=== PATIENT | female | born 1970 | race Caucasian/White ===

== ENCOUNTER 2016-09-18 13:26 | Inpatient (IN) | payer MEDICAID ==
[2016-09-18] MEDS ORDERED: ONDANSETRON HCL INJ/PF 4 MG/2 ML SDV IV ONE ×2 (14:08→18:21)
[2016-09-18] MEDS ORDERED: NORMAL SALINE 1000 ML 1,000 ML IV ONE ×2 (14:08→17:25)
[2016-09-18] MEDS ORDERED: ACETAMINOPHEN 325 MG TABLET PO ONE ×2 (14:08→18:21)
--- NOTE | 2016-09-18 14:12 | ER Document Report ---
ED Medical Screen (RME) - General Chief Complaint: High Blood Sugar Stated Complaint: HEADACHE,WEAKNESS Time Seen by Provider: 09/18/16 14:04 Mode of Arrival: Ambulatory Information source: Patient Notes: Patient presents to the emergency department with complaints that she may have overdosed herself with her insulin. Patient reports she has been sick for the past 5 days. She vomited yesterday. She reports her sugars have been high over 300. She usually gives herself 83 of Lantus and a sliding scale of NovoLog daily. She reports she gave herself a total of 100 units of NovoLog yesterday and then woke up this morning at 430 and gave herself some more NovoLog and Lantus. Reports her sugars are coming down very fast. She reports an Accu-Chek of 96 is very low for her. Patient is complaining of a headache and nausea. TRAVEL OUTSIDE OF THE [place] IN LAST 30 DAYS: No - Related Data Allergies/Adverse Reactions: codeine [Codeine] Allergy (Unknown, Verified 03/20/15 09:13) quetiapine fumarate [From Seroquel] Allergy (Unknown, Verified 03/20/15 09:13) latex [Latex] Allergy (Verified 03/20/15 09:13) Home Medications: Current Home Medications Albuterol Sulfate [Ventolin Hfa] 2 puff IH Q4HP PRN 09/18/16 [History] Duloxetine HCl 30 mg PO DAILY 09/18/16 [History] Insulin Aspart [Novolog Flexpen] 0 units SQ MEALS 09/18/16 [History] Insulin Glargine,Hum.rec.anlog [Lantus Solostar] 83 units SQ QHS 09/18/16 [ History] Metoprolol Tartrate [Lopressor 25 mg Tablet] 25 mg PO DAILY 09/18/16 [History] Trazodone HCl [Desyrel 50 mg Tablet] 50 mg PO QHS 09/18/16 [History] Past Medical History - Past Medical History Cardiac Medical History: Denies: Hx Coronary Artery Disease, Hx Heart Attack, Hx Hypertension Pulmonary Medical History: Reports: Hx Bronchitis, Hx Pneumonia - 2009 "Gets every year" Neurological Medical History: Reports: Hx Migraine, Hx Seizures - Related to Seroquel allergy. Denies: Hx Cerebrovascular Accident Endocrine Medical History: Reports: Hx Diabetes Mellitus Type 1, Hx Diabetes Mellitus Type 2 - states pcm increased Lantus today b/c blood surgar high yesterday Renal/ Medical History: Denies: Hx Peritoneal Dialysis GI Medical History: Reports: Hx Crohn's Disease, Hx Diverticulitis Musculoskeltal Medical History: Denies Hx Arthritis, Reports Hx Musculoskeletal Trauma Psychiatric Medical History: Reports: Hx Obsessive Compulsive Disorder, Hx Post Traumatic Stress Disorder Denies: Hx Anxiety, Hx Attention Deficit Hyperactivity Disorder, Hx Bipolar Disorder, Hx Borderline Personality Disorder, Hx Dementia Traumatic Medical History: Reports: Hx Fractures Past Surgical History: Reports: Hx Abdominal Surgery - x22, Tummy Tuck, Hx Appendectomy, Hx Breast Surgery - biopsy, Hx Section - x4, Hx Cholecystectomy, Hx Hysterectomy, Hx Oral Surgery, Hx Tonsillectomy, Hx Umbilical Hernia. Denies: Hx Pacemaker - Immunizations Immunizations up to date: Yes Hx Diphtheria, Pertussis, Tetanus Vaccination: Yes Physical Exam - Vital signs Vitals: Temp Pulse Resp BP Pulse Ox 98.2 F 109 H 20 140/101 H 96 09/18/16 13:33 09/18/16 13:33 09/18/16 13:33 09/18/16 13:33 09/18/16 13:33 Course - Vital Signs Vital signs: Temp Pulse Resp BP Pulse Ox 97.9 F 70 16 120/74 99 09/18/16 13:40 09/18/16 13:40 09/18/16 19:01 09/18/16 19:00 09/18/16 19:01 - Laboratory Result Diagrams: 09/18/16 14:20 09/18/16 16:37 Laboratory results interpreted by me: 09/18/16 09/18/16 09/18/16 14:20 16:10 16:37 RBC 5.57 H Hgb 15.6 H Hct 47.2 H Glucose 72 L POC Glucose Urine Glucose (UA) >=500 H Urine Ketones TRACE H Ur Leukocyte Esterase SMALL H 09/18/16 09/18/16 18:55 19:38 RBC Hgb Hct Glucose POC Glucose 67 L 188 H Urine Glucose (UA) Urine Ketones Ur Leukocyte Esterase Doctor's Discharge - Discharge Clinical Impression: Hypoglycemia Condition: Stable Disposition: ADMITTED OBSERVATION
[2016-09-18 14:33] LABS: ABSOLUTE EOSINOPHILS # (AUTO) 0.1 10^3/uL (0.0-0.6); ABSOLUTE MONOCYTES (AUTO) 0.4 10^3/uL (0.1-1.4); ABSOLUTE NEUT (AUTO) 3.9 10^3/uL (1.7-8.2); BASOPHILS % (AUTO) 0.6 % (0-2); EOSINOPHILS % (AUTO) 1.1 % (0-6); HEMATOCRIT 47.2 % (36.0-47.0); HEMOGLOBIN 15.6 g/dL (12.0-15.5); HGB HCT DIFFERENCE -0.4; LYMPHOCYTES % (AUTO) 30.7 % (13-45); MEAN CORPUSCULAR HEMOGLOBIN 27.9 pg (27.0-33.4); MEAN CORPUSCULAR VOLUME 85 fl (80-97); MONOCYTES % (AUTO) 6.4 % (3-13); RED BLOOD COUNT 5.57 10^6/uL (3.72-5.28); RED CELL DISTRIBUTION WIDTH 13.1 % (11.5-14.0); SEGMENTED NEUTROPHILS % (AUTO) 61.2 % (42-78); WHITE BLOOD COUNT 6.4 10^3/uL (4.0-10.5)
[2016-09-18 16:43] LABS: APPEARANCE,URINE SLIGHTLY-CLOUDY; BILIRUBIN,URINE NEGATIVE (NEGATIVE); GLUCOSE, URINE >=500 mg/dL (NEGATIVE); KETONES,URINE TRACE mg/dL (NEGATIVE); LEUKOCYTE ESTERASE,URINE SMALL (NEGATIVE); NITRITE,URINE NEGATIVE (NEGATIVE); PROTEIN,URINE NEGATIVE (NEGATIVE); URINE SPECIFIC GRAVITY 1.035; UROBILINOGEN,URINE NEGATIVE mg/dL (<2.0)
[2016-09-18 17:09] LABS: ALANINE AMINOTRANSFERASE 35 U/L (9-52); ALBUMIN 4.1 g/dL (3.5-5.0); ALKALINE PHOSPHATASE 71 U/L (38-126); ANION GAP 9 (5-19); ASPARTATE AMINO TRANSFERASE 22 U/L (14-36); BILIRUBIN,DIRECT 0.3 mg/dL (0.0-0.4); BILIRUBIN,TOTAL 0.4 mg/dL (0.2-1.3); BLOOD UREA NITROGEN 18 mg/dL (7-20); CALCIUM 9.1 mg/dL (8.4-10.2); CARBON DIOXIDE 25 mmol/L (22-30); CHLORIDE 107 mmol/L (98-107); CREATININE RESULT 0.69 mg/dL (0.52-1.25); GLUCOSE 72 mg/dL (75-110); POTASSIUM 3.9 mmol/L (3.6-5.0); SODIUM 140.9 mmol/L (137-145); TOTAL PROTEIN 7.1 g/dL (6.3-8.2)
[2016-09-18] MEDS ORDERED: DEXTROSE 50%-WATER 25 GM/50 ML DISP.SYRIN IV ONE ×2 (17:43→18:56)
--- NOTE | 2016-09-18 17:44 | ER Document Report ---
ED General - General Chief Complaint: High Blood Sugar Stated Complaint: HEADACHE,WEAKNESS Time Seen by Provider: 09/18/16 14:04 Mode of Arrival: Ambulatory Information source: Patient Notes: 46 yr old female diabetic on lantus and insulin presents with complaints of taking too much of her medication due to her high blood sugar. pt denies any fevers or chills, nausea or vomiting . Pt notes she took 20 of lantus at 8am and 25 of insulin, pt notes approximately 200 units of insulin total in the past 24 hours TRAVEL OUTSIDE OF THE [place] IN LAST 30 DAYS: No - HPI Onset: Yesterday Onset/Duration: Persistent Quality of pain: No pain Severity: Mild Pain Level: Denies Associated symptoms: None Exacerbated by: Denies Relieved by: Denies Similar symptoms previously: No Recently seen / treated by doctor: No - Related Data Allergies/Adverse Reactions: codeine [Codeine] Allergy (Unknown, Verified 03/20/15 09:13) quetiapine fumarate [From Seroquel] Allergy (Unknown, Verified 03/20/15 09:13) latex [Latex] Allergy (Verified 03/20/15 09:13) Home Medications: Current Home Medications Albuterol Sulfate [Ventolin Hfa] 2 puff IH Q4HP PRN 09/18/16 [History] Duloxetine HCl 30 mg PO DAILY 09/18/16 [History] Insulin Aspart [Novolog Flexpen] 0 units SQ MEALS 09/18/16 [History] Insulin Glargine,Hum.rec.anlog [Lantus Solostar] 83 units SQ QHS 09/18/16 [ History] Metoprolol Tartrate [Lopressor 25 mg Tablet] 25 mg PO DAILY 09/18/16 [History] Trazodone HCl [Desyrel 50 mg Tablet] 50 mg PO QHS 09/18/16 [History] Past Medical History - General Information source: Patient - Social History Smoking Status: Never Smoker Cigarette use (# per day): No Chew tobacco use (# tins/day): No Smoking Education Provided: No Family History: Arthritis, DM. denies: CAD, CVA, Hyperlipidemia, Hypertension, Malignancy, Thyroid Disfunction Patient has suicidal ideation: No Patient has homicidal ideation: No - Past Medical History Cardiac Medical History: Denies: Hx Coronary Artery Disease, Hx Heart Attack, Hx Hypertension Pulmonary Medical History: Reports: Hx Bronchitis, Hx Pneumonia - 2009 "Gets every year" Neurological Medical History: Reports: Hx Migraine, Hx Seizures - Related to Seroquel allergy. Denies: Hx Cerebrovascular Accident Endocrine Medical History: Reports: Hx Diabetes Mellitus Type 1, Hx Diabetes Mellitus Type 2 - states pcm increased Lantus today b/c blood surgar high yesterday Renal/ Medical History: Denies: Hx Peritoneal Dialysis GI Medical History: Reports: Hx Crohn's Disease, Hx Diverticulitis Musculoskeltal Medical History: Denies Hx Arthritis, Reports Hx Musculoskeletal Trauma Psychiatric Medical History: Reports: Hx Obsessive Compulsive Disorder, Hx Post Traumatic Stress Disorder Denies: Hx Anxiety, Hx Attention Deficit Hyperactivity Disorder, Hx Bipolar Disorder, Hx Borderline Personality Disorder, Hx Dementia Traumatic Medical History: Reports: Hx Fractures Past Surgical History: Reports: Hx Abdominal Surgery - x22, Tummy Tuck, Hx Appendectomy, Hx Breast Surgery - biopsy, Hx Section - x4, Hx Cholecystectomy, Hx Hysterectomy, Hx Oral Surgery, Hx Tonsillectomy, Hx Umbilical Hernia. Denies: Hx Pacemaker - Immunizations Immunizations up to date: Yes Hx Diphtheria, Pertussis, Tetanus Vaccination: Yes Hx Pneumococcal Vaccination: 04/22/07 Review of Systems - Review of Systems Notes: REVIEW OF SYSTEMS: CONSTITUTIONAL : Denies fever, chills, or sweats. Denies recent illness. EENT: Denies eye, ear, throat, or mouth pain or symptoms. Denies nasal or sinus congestion or discharge. Denies throat, tongue, or mouth swelling or difficulty swallowing. CARDIOVASCULAR: Denies chest pain. Denies palpitations or racing or irregular heart beat. Denies ankle edema. RESPIRATORY: Denies cough, cold, or chest congestion. Denies shortness of breath, difficulty breathing, or wheezing. GASTROINTESTINAL: Denies abdominal pain or distention. Denies nausea, vomiting , or diarrhea. Denies blood in vomitus, stools, or per rectum. Denies black, tarry stools. Denies constipation. GENITOURINARY: Denies difficulty urinating, painful urination, burning, frequency, blood in urine, or discharge. FEMALE GENITOURINARY: Denies vaginal bleeding, heavy or abnormal periods, irregular periods. Denies vaginal discharge or odor. MUSCULOSKELETAL: Denies back or neck pain or stiffness. Denies joint pain or swelling. SKIN: Denies rash, lesions or sores. HEMATOLOGIC : Denies easy bruising or bleeding. LYMPHATIC: Denies swollen, enlarged glands. NEUROLOGICAL: Denies confusion or altered mental status. Denies passing out or loss of consciousness. Denies dizziness or lightheadedness. Denies headache. Denies weakness or paralysis or loss of use of either side. Denies problems with gait or speech. Denies sensory loss, numbness, or tingling. Denies seizures. PSYCHIATRIC: Denies anxiety or stress. Denies depression, suicidal ideation, or homicidal ideation. ALL OTHER SYSTEMS REVIEWED AND NEGATIVE. Dictation was performed using [employer] voice recognition software PHYSICAL EXAMINATION: GENERAL: Well-appearing, well-nourished and in no acute distress. HEAD: Atraumatic, normocephalic. EYES: Pupils equal round and reactive to light, extraocular movements intact, conjunctiva are normal. ENT: Nares patent, oropharynx clear without exudates. Moist mucous membranes. NECK: Normal range of motion, supple without lymphadenopathy LUNGS: Breath sounds clear to auscultation bilaterally and equal. No wheezes rales or rhonchi. HEART: Regular rate and rhythm without murmurs ABDOMEN: Soft, nontender, nondistended abdomen. No guarding, no rebound. No masses appreciated. Female : deferred Musculoskeletal: Normal range of motion, no pitting or edema. No cyanosis. NEUROLOGICAL: Cranial nerves grossly intact. Normal speech, normal gait. Normal sensory, motor exams PSYCH: Normal mood, normal affect. SKIN: Warm, Dry, normal turgor, no rashes or lesions noted. Physical Exam - Vital signs Vitals: Temp Pulse Resp BP Pulse Ox 98.2 F 109 H 20 140/101 H 96 09/18/16 13:33 09/18/16 13:33 09/18/16 13:33 09/18/16 13:33 09/18/16 13:33 Course - Re-evaluation Re-evalutation: 09/18/16 17:44 Patient last gave herself 20 of Lantus and 25 of insulin at 8 AM, half life of Lantus is 12 hours. Recheck of her blood sugar was 70s, 09/18/16 18:01 09/18/16 18:01 Since blood sugar on recheck 97, I will continue IV fluids and watch 09/18/16 18:56 dextrose given glucose was 67 09/18/16 20:46 pts blood sugar went from 180 to 99 09/18/16 20:48 pt will be admitted to the hospital for evaluation since her blood sugar is tactile. - Vital Signs Vital signs: Temp Pulse Resp BP Pulse Ox 97.9 F 70 16 120/74 99 09/18/16 13:40 09/18/16 13:40 09/18/16 19:01 09/18/16 19:00 09/18/16 19:01 - Laboratory Result Diagrams: 09/18/16 14:20 09/18/16 16:37 Laboratory results interpreted by me: 09/18/16 09/18/16 09/18/16 14:20 16:10 16:37 RBC 5.57 H Hgb 15.6 H Hct 47.2 H Glucose 72 L POC Glucose Urine Glucose (UA) >=500 H Urine Ketones TRACE H Ur Leukocyte Esterase SMALL H 09/18/16 09/18/16 18:55 19:38 RBC Hgb Hct Glucose POC Glucose 67 L 188 H Urine Glucose (UA) Urine Ketones Ur Leukocyte Esterase Discharge - Discharge Clinical Impression: Hypoglycemia Condition: Stable Disposition: ADMITTED OBSERVATION Admitting Provider: Hospitalist Unit Admitted: Telemetry
[2016-09-18] MEDS: POTASSI CL 20 MEQ/D5NS 1L 1,000 ML IV PRN (21:33)
[2016-09-18] MEDS ORDERED: DEXTROSE 50%-WATER 25 GM/50 ML DISP.SYRIN IV PRN ×2 (22:11)
[2016-09-18] MEDS ORDERED: DEXTROSE 40% GEL 15 GM TUBE PO PRN ×2 (22:11)
[2016-09-18] MEDS ORDERED: GLUCAGON,HUMAN RECOMB 1 MG INJ IM PRN (22:11)
[2016-09-18] MEDS ORDERED: IPRATROPIUM/ALBUTEROL 0.5-2.5 MG/3 ML AMPUL NEB PRN (22:14)
[2016-09-18] MEDS ORDERED: MAG HYDROX/AL HYDROX/SIMETH SUSP 30 ML UDCUP PO PRN (22:14)
[2016-09-18] MEDS ORDERED: ACETAMINOPHEN 325 MG TABLET PO PRN (22:14)
[2016-09-18] MEDS ORDERED: MAGNESIUM HYDROXIDE SUSP 30 ML UDCUP PO PRN (22:14)
[2016-09-18 22:23] LABS: ADD ON TESTING BLD IN LAB ACKNOWLEDGE
--- NOTE | 2016-09-18 22:44 | PDOC H&P ---
History of Present Illness Admission Date/PCP: 09/18/16 20:58 ISRAEL THRASHER MD Endocrin [place], [place] Patient complains of: low blood sugar History of Present Illness: PHILLIP DOBBS is a 46 year old female with underlying type 1 diabetes mellitus, who presents to the emergency room for evaluation of above complaint. Patient has been discussed with emergency room physician who evaluated the patient. Over the past 2 weeks, except for the last 24 hours, her blood sugars have never fallen below 350. Over the last several days, she basically has been self -medicating herself with additional Lantus and NovoLog insulin. States she has had approximately 200 units of NovoLog and just over 100 units of Lantus in the last 24 hours. Starting approximately 24 hours ago, she noted her blood sugars were consistently in the low range. She was urged to come to the emergency room but declined to do so. Apparently has not contacted either her primary care physician or armature varnisher over this time span either. Denies nausea vomiting, fever or chills, diarrhea or dysuria. No chest or abdominal pain. Other than her own changes in her medication regimen, there has been no recent physician change in her insulin regimen. According to the emergency room physician, she reportedly had a brief syncopal episode in the emergency room. Also complaining of a headache. Little relief with Tylenol given in the emergency room.. Has migraine headaches. States this feels like her typical migraine headache. Takes Botox injections every 2 months. Last injection 10 days ago. Laboratory results are listed in [facility] and are reviewed. EKG noted and compared to tracing from 06/25/14. Social history/personal habits: . One son. Unemployed. No use of tobacco or illicit drugs. Rare glass of wine. Allergies/adverse reactions are listed in [facility] and are reviewed. Home medications initially autopopulated into [employer] may not accurately reflect patient's true medications, dosages, and/or frequencies. technical aid has reconciled her medications, but was not aware that she takes Botox injections. REVIEW OF SYSTEMS: Constitutional: No fever or chills. Eyes: Wears glasses. ENT: No swallowing problems or complaints. Denies hearing loss. Pulmonary: No current complaints. Cardiovascular: No current complaints, including chest pain. Gastrointestinal: No current complaints, including nausea or vomiting. Skin: No current complaints, including rashes. Hematologic: Easy bruising. Neurologic: See history and present illness. Musculoskeletal:Joint pain from arthritis. Psychiatric: Anxiety. Denies depression. Endocrine: No current complaints, including polyuria. Genitourinary: No current complaints, including dysuria. PHYSICAL EXAMINATION: 5 feet 4 inches tall. 78.8 kg. BMI 29.8 kg/m. Blood pressure 108/71. Pulse 67 and regular. Respirations are 16 and unlabored. 100% saturation on room air. Temperature 97.9. Slightly overweight otherwise well-nourished well-developed female appearing approximately her stated age. Pleasant awake alert and cooperative. Appears to feel a bit under the weather, so to speak. Mildly anxious, without agitation. Son is present at her side; patient approves. Female emergency room nurse Allen is present. Skin is warm and dry. No grossly obvious evidence of rash in areas of skin examined. No subcutaneous nodules palpated. ENT: Hearing grossly normal to normal conversation. Tongue midline on protrusion pink and slightly moist. Eyes: No scleral icterus. Pupils equal and reactive to light at 4 mm. [place] conjunctivae. Neck is supple and nontender to gentle active range of motion and palpation. Midline trachea. No palpable thyroid nodule mass enlargement or tenderness. Lymphatic: No palpable cervical or clavicular nodes. Neck and lymphatic exams limited by patient body habitus. Psychiatric: Reasonable insight into acute and chronic medical issues. Oriented to time location and why here. Lungs: Auscultation reveals clear and equal breath sounds bilaterally. No use of accessory respiratory muscles. Cardiovascular: Heart regular rate and rhythm, without gallop murmur or rub. No carotid or abdominal aortic bruits. No ankle or pedal edema. palpable dorsalis pedis pulses. Abdomen:soft slightly distended nontender with positive bowel sounds. Unable to adequately evaluate abdomen for masses or organomegaly due to distention and body habitus. Extremities: Feet are warm and dry. No calf tenderness to compression. No grossly obvious visual evidence of calf swelling. Gentle manipulation of lower extremities fails to reveal any obvious evidence of injury or instability to knees hips or ankles. Neurologic: Moves upper extremities grossly normally. Patellar reflexes absent. Absent Babinski. Light touch is intact at feet. Dorsiflexion and plantarflexion of feet 5 / 5 and symmetric. Past Medical History Cardiac Medical History: Reports: Hypertension, Pulmonary Embolism - 2000, after abdominal surgery. Coumadin for 9 months. Denies: Congestive Heart Failure, Coronary Artery Disease, DVT, Myocardial Infarction, Hyperlipidema Pulmonary Medical History: Reports: Asthma, Bronchitis, Pneumonia - 2010 "Gets every year" Denies: Chronic Obstructive Pulmonary Disease (COPD), Sleep Apnea EENT Medical History: Reports: Eyes - Glasses Denies: Ears, Throat Neurological Medical History: Reports: Migraine, Seizures - Related to Seroquel allergy; never on antiepileptic. Denies: Hemorrhagic CVA, Ischemic CVA Endocrine Medical History: Reports: Diabetes Mellitus Type 1 Denies: Hyperthyroidism, Hypothyroidism Renal/ Medical History: Reports: None GI Medical History: Reports: Crohn's Disease - "In remission", Diverticulitis Denies: Cirrhosis, Hepatitis, Peptic Ulcer Disease Musculoskeltal Medical History: Reports: Arthritis Skin Medical History: Reports: None Psychiatric Medical History: Reports: General Anxiety Disorder, Post Traumatic Stress Disorder, Other - Obsessive-compulsive disorder. Denies: Alcohol Dependency, Depression, Substance Abuse, Tobacco Dependency Hematology: Denies: Anemia Infectious Medical History: Denies: Clostridium Difficile, Hepatitis B, Hepatitis C, Methicillin- Resistant Staph Aureus Past Surgical History Past Surgical History: Reports: Appendectomy, Section - x4, Cholecystectomy, Herniorrhaphy, Hysterectomy, Tonsillectomy Denies: Coronary Artery Bypass Graft, Coronary Stent, Pacemaker Social History Information Source: Patient, Emergency Med Personnel, [facility] Records Smoking Status: Never Smoker Frequency of Alcohol Use: Rare Drugs: None - Advance Directive Resuscitation Status: Full Code Surrogate healthcare decision maker:: Son Family History Family History: Arthritis, DM. denies: CAD, CVA, Hyperlipidemia, Hypertension, Malignancy, Thyroid Disfunction Parental Family History Reviewed: Yes - Mother of diabetic complications. Uncertain father's cause of Children Family History Reviewed: Yes - Son is healthy. Sibling(s) Family History Reviewed.: Yes - Sister with ulcerative colitis. Medication/Allergy Home Medications: Albuterol Sulfate [Ventolin Hfa] 2 puff IH Q4HP PRN 09/18/16 Duloxetine HCl 30 mg PO DAILY 09/18/16 Insulin Aspart [Novolog Flexpen] 0 units SQ MEALS 09/18/16 Insulin Glargine,Hum.rec.anlog [Lantus Solostar] 83 units SQ QHS 09/18/16 Metoprolol Tartrate [Lopressor 25 mg Tablet] 25 mg PO DAILY 09/18/16 Onabotulinumtoxina [Botox] unit IJ 09/18/16 Trazodone HCl [Desyrel 50 mg Tablet] 50 mg PO QHS 09/18/16 Sumatriptan [Imitrex 5 Mg Nasal [place]man Ud] mg NASL PRN 09/19/16 Allergies/Adverse Reactions: codeine [Codeine] Allergy (Unknown, Verified 09/19/16 04:41) quetiapine fumarate [From Seroquel] Allergy (Unknown, Verified 09/18/16 22:10) seizure latex [Latex] Allergy (Verified 03/20/15 09:13) Physical Exam Vital Signs: Temp Pulse Resp BP Pulse Ox 97.9 F 70 16 120/74 99 09/18/16 13:40 09/18/16 13:40 09/18/16 19:01 09/18/16 19:00 09/18/16 19:01 Assessment & Plan - Diagnosis (1) Abnormal urinalysis Is this a current diagnosis for this admission?: YesPlan: Urine culture. With no urinary tract symptoms, we will forego antibiotics at this point in time. (2) Headache Qualifiers: Headache type: unspecified Headache chronicity pattern: chronic headache Is this a current diagnosis for this admission?: YesPlan: As needed pain medication. (3) Hypoglycemia due to type 1 diabetes mellitus Is this a current diagnosis for this admission?: YesPlan: Cardiac diet. Hourly Accu-Cheks. Hypoglycemic protocol. Dextrose containing IV fluid. We will obviously hold home insulin. I have strongly encouraged patient not to get out of bed without notifying staff , to avoid a fall with injury. Knee high SCDs for DVT prophylaxis, along with subcutaneous Lovenox. Impression and plans were discussed with patient and son, both of whom concur. Time spent in evaluation and management of patient: 66 minutes. (4) Noncompliance with medication regimen Is this a current diagnosis for this admission?: Yes (5) Syncope Qualifiers: Syncope type: unspecified Qualified Code(s): R55 - Syncope and collapse Is this a current diagnosis for this admission?: YesPlan: Orthostatic vital signs stat and every 4 hours while awake. Fall precautions. Out of bed with assistance only. (6) Anxiety Is this a current diagnosis for this admission?: YesPlan: Resume home medications as appropriate once these have been reviewed. (7) HTN (hypertension) Qualifiers: Hypertension type: essential hypertension Qualified Code(s): I10 - Essential (primary) hypertension Is this a current diagnosis for this admission?: YesPlan: Resume home medications as appropriate once these have been reviewed. (8) OCD (obsessive compulsive disorder) Qualifiers: Obsessive-compulsive disorder type: unspecified Qualified Code(s): F42.9 - Obsessive-compulsive disorder, unspecified Is this a current diagnosis for this admission?: YesPlan: Resume home medications as appropriate once these have been reviewed. (9) PTSD (post-traumatic stress disorder) Is this a current diagnosis for this admission?: YesPlan: Resume home medications as appropriate once these have been reviewed.
[2016-09-18 22:46] LABS: MAGNESIUM 1.8 mg/dL (1.6-2.3)
[2016-09-19] MEDS: OXYCODONE HCL IR 5 MG TABLET PO PRN (00:09)
--- NOTE | 2016-09-19 00:23 | EKG REPORT ---
SEVERITY:- BORDERLINE ECG - SINUS RHYTHM BORDERLINE R WAVE PROGRESSION, ANTERIOR LEADS BORDERLINE T ABNORMALITIES, ANTERIOR LEADS : Confirmed by: Rinku Yuen 19-Sep-2016 00:23:35
[2016-09-19] MEDS: PROMETHAZINE HCL 25 MG TABLET PO PRN ×3 (03:02→19:13)
[2016-09-19] MEDS ORDERED: MORPHINE SULFATE 10 MG/ML INJ IV ONE (04:41)
[2016-09-19 06:56] LABS: ANION GAP 7 (5-19); BLOOD UREA NITROGEN 12 mg/dL (7-20); CALCIUM 8.8 mg/dL (8.4-10.2); CARBON DIOXIDE 25 mmol/L (22-30); CHLORIDE 109 mmol/L (98-107); CREATININE RESULT 0.71 mg/dL (0.52-1.25); GLUCOSE 91 mg/dL (75-110); POTASSIUM 4.4 mmol/L (3.6-5.0); SODIUM 141.4 mmol/L (137-145)
[2016-09-19] MEDS: ENOXAPARIN SODIUM INJ 40 MG/0.4 ML DISP.SYRIN SUBCUT SCH (07:51)
[2016-09-19] MEDS: POTASSI CL 20 MEQ/D5NS 1L 1,000 ML IV PRN ×2 (07:52→16:28)
[2016-09-19] MEDS: SUMATRIPTAN SUCCINATE 100 MG TABLET PO PRN ×2 (10:26→23:40)
[2016-09-19] MEDS: DOCUSATE SODIUM 100 MG CAPSULE PO SCH ×2 (10:27→17:04)
[2016-09-19] MEDS ORDERED: INSULIN LISPRO 100 UNIT/ML 3 ML VIAL SUBCUT PRN (10:39)
--- NOTE | 2016-09-19 10:56 | PDOC PROGRESS REPORT ---
Subjective Progress Note for:: 09/19/16 Subjective:: Patient states that her blood glucose has been very poorly controlled over the past couple weeks. She states that she has had an extraordinary amount of psychosocial stressors to include loss of a job, having to move in with her children, starting training for a new program. She believes this may be related to her uncontrolled blood glucose. She denies any infectious symptoms such as fever, chills, dysuria, abdominal pain. She has been having migraine headaches. She has chronic migraines that are treated with Imitrex and hydrocodone. Physical Exam Vital Signs: Temp Pulse Resp BP Pulse Ox 97.9 F 66 15 92/51 L 97 09/19/16 07:21 09/19/16 07:21 09/19/16 07:21 09/19/16 07:21 09/19/16 07:21 Intake & Output 09/18/16 09/19/16 09/20/16 06:59 06:59 06:59 Intake Total 1000 Balance 1000 Weight 81.8 kg GENERAL: No acute distress HEENT: Conjunctiva clear, nonicteric, moist mucous membranes, no JVD, midline trachea RESPIRATORY: Clear to auscultation bilaterally, no wheezes, no rhonchi CARDIAC: Regular rate and rhythm, no murmurs/gallops/rubs ABDOMEN: Soft, nondistended, nontender, positive bowel sounds, no rebound, no guarding EXTREMETIES: No edema, cyanosis, clubbing NEUROLOGIC: Alert, oriented to person/place/time, CN's grossly intact, no focal deficits SKIN: No rash, wounds PSYCH: Normal mood, normal affect Results Laboratory Results: 09/19/16 06:01 09/19/16 06:01 Sodium 141.4 Potassium 4.4 Chloride 109 H Carbon Dioxide 25 Anion Gap 7 BUN 12 Creatinine 0.71 Est GFR ( Amer) > 60 Est GFR (Non-Af Amer) > 60 Glucose 91 Calcium 8.8 Assessment & Plan - Diagnosis (1) Hypoglycemia due to type 1 diabetes mellitus Is this a current diagnosis for this admission?: YesPlan: Continue D5 normal saline for now. Continue Accu-Cheks before meals/at bedtime. Continue to hold scheduled Lantus. (2) Syncope Qualifiers: Syncope type: unspecified Qualified Code(s): R55 - Syncope and collapse Is this a current diagnosis for this admission?: YesPlan: Secondary to hypoglycemia. (3) Migraine Is this a current diagnosis for this admission?: YesPlan: Imitrex. As needed IV Dilaudid. - Time Time Spent with patient: 35 or more minutes
[2016-09-19] MEDS: HYDROMORPHONE HCL INJ/PF 2 MG/ML AMPULE IV PRN ×3 (13:16→20:57)
[2016-09-19] MEDS: METOPROLOL TARTRATE 25 MG TABLET PO SCH (17:01)
[2016-09-20] MEDS: PROMETHAZINE HCL 25 MG TABLET PO PRN ×6 (01:23→23:54)
[2016-09-20] MEDS: HYDROMORPHONE HCL INJ/PF 2 MG/ML AMPULE IV PRN ×5 (01:23→19:43)
[2016-09-20] MEDS: POTASSI CL 20 MEQ/D5NS 1L 1,000 ML IV PRN ×2 (01:24→09:36)
[2016-09-20] MEDS ORDERED: MAGNESIUM HYDROXIDE SUSP 30 ML UDCUP PO PRN (09:57)
[2016-09-20] MEDS ORDERED: MAG HYDROX/AL HYDROX/SIMETH SUSP 30 ML UDCUP PO PRN (09:57)
[2016-09-20] MEDS: ENOXAPARIN SODIUM INJ 40 MG/0.4 ML DISP.SYRIN SUBCUT SCH (10:15)
[2016-09-20] MEDS: METOPROLOL TARTRATE 25 MG TABLET PO SCH (10:16)
[2016-09-20] MEDS: DOCUSATE SODIUM 100 MG CAPSULE PO SCH ×2 (10:16→17:27)
[2016-09-20] MEDS ORDERED: VANCOMYCIN HCL 0 MG in DEXTROSE 5%-WATER 250 ML IV NR (11:45)
--- NOTE | 2016-09-20 12:24 | RADIOLOGY REPORT (SQ) ---
EXAM DESCRIPTION: CHEST SINGLE VIEW COMPLETED DATE/TIME: 09/20/2016 12:01 pm REASON FOR STUDY: fever COMPARISON: CT angio chest 09/29/2012 EXAM PARAMETERS: NUMBER OF VIEWS: One view. TECHNIQUE: Single frontal radiographic view of the chest acquired. RADIATION DOSE: NA LIMITATIONS: None. FINDINGS: LUNGS AND PLEURA: Minimal left retrocardiac atelectasis. Lungs are otherwise well inflate d and clear. No pleural effusion. No pneumothorax. MEDIASTINUM AND HILAR STRUCTURES: No masses. Contour normal. HEART AND VASCULAR STRUCTURES: Heart normal in size. Normal vasculature. BONES: No acute findings. HARDWARE: None in the chest. OTHER: No other significant finding. IMPRESSION: Minimal left basilar atelectasis TECHNICAL DOCUMENTATION: JOB ID: [id number]
[2016-09-20 12:58] LABS: PARTIAL THROMBOPLASTIN TIME 33.8 SEC (23.5-35.8)
--- NOTE | 2016-09-20 13:38 | RADIOLOGY REPORT (SQ) ---
EXAM DESCRIPTION: CT HEAD WITHOUT COMPLETED DATE/TIME: 09/20/2016 1:20 pm REASON FOR STUDY: headache COMPARISON: CT brain 06/15/2011 TECHNIQUE: Axial images acquired through the brain without intravenous contrast. Images reviewed wi th bone, brain and subdural windows. Images stored on PACS. All CT scanners at this facility use dose modulation, iterative reconstruction, and/or weight based d osing when appropriate to reduce radiation dose to as low as reasonably achievable (ALARA). [facility]: Dose Right [facility]: CareDose [facility]: Dose Right [facility]: Teradose 4D [facility]: JeNaCell RADIATION DOSE: 48.95 mGy. LIMITATIONS: None. FINDINGS: VENTRICLES: Normal size and contour. CEREBRUM: No masses. No hemorrhage. No midline shift. Normal lan/white matter differentiation. N o evidence for acute infarction. CEREBELLUM: No masses. No hemorrhage. No alteration of density. No evidence for acute infarction. EXTRAAXIAL SPACES: No fluid collections. No masses. ORBITS AND GLOBE: No intra- or extraconal masses. Normal contour of globe without masses. CALVARIUM: No fracture. PARANASAL SINUSES: No fluid or mucosal thickening. SOFT TISSUES: No mass or hematoma. OTHER: No other significant finding. IMPRESSION: NORMAL BRAIN CT WITHOUT CONTRAST. TECHNICAL DOCUMENTATION: JOB ID: [id number] Quality ID # [id number]: Final reports with documentation of one or more dose reduction techniques (e.g., Au tomated exposure control, adjustment of the mA and/or kV according to patient size, use of iterative reconstruction technique) 2010 [employer]- All Rights Reserved
[2016-09-20] MEDS: CEFTRIAXONE 2 GM/D5W RTU 2 GM/50 ML RTUPB IV SCH (13:53)
[2016-09-20] MEDS: METOCLOPRAMIDE HCL INJ/PF 10 MG/2 ML SDV IV SCH ×2 (13:53→17:27)
--- NOTE | 2016-09-20 14:08 | PDOC PROGRESS REPORT ---
Subjective Progress Note for:: 09/20/16 Subjective:: Patient has been having headache, nausea, vomiting, neck stiffness. She had documented fever overnight. She states that she has a history of gastroparesis and feels as though this may be acting out. Physical Exam Vital Signs: Temp Pulse Resp BP Pulse Ox 99.0 F 68 16 111/69 96 09/20/16 07:35 09/20/16 13:41 09/20/16 13:41 09/20/16 07:35 09/20/16 13:41 Intake & Output 09/19/16 09/20/16 09/21/16 06:59 06:59 06:59 Intake Total 1000 4156 Balance 1000 4156 Weight 81.8 kg GENERAL: No acute distress HEENT: Conjunctiva clear, nonicteric, moist mucous membranes, no JVD, midline trachea RESPIRATORY: Clear to auscultation bilaterally, no wheezes, no rhonchi CARDIAC: Regular rate and rhythm, no murmurs/gallops/rubs ABDOMEN: Soft, nondistended, nontender, positive bowel sounds, no rebound, no guarding EXTREMETIES: No edema, cyanosis, clubbing NEUROLOGIC: Alert, oriented to person/place/time, CN's grossly intact, no focal deficits, no nuchal rigidity SKIN: No rash, wounds PSYCH: Normal mood, normal affect Results Laboratory Results: 09/19/16 06:01 Impressions: Head CT 09/20/16 00:00 IMPRESSION: NORMAL BRAIN CT WITHOUT CONTRAST. Chest X-Ray 09/20/16 11:39 IMPRESSION: Minimal left basilar atelectasis Assessment & Plan - Diagnosis (1) Hypoglycemia due to type 1 diabetes mellitus Is this a current diagnosis for this admission?: YesPlan: Continue D5 normal saline for now. Continue Accu-Cheks before meals/at bedtime. Continue to hold scheduled Lantus. (2) Syncope Qualifiers: Syncope type: unspecified Qualified Code(s): R55 - Syncope and collapse Is this a current diagnosis for this admission?: YesPlan: Secondary to hypoglycemia. (3) Migraine Is this a current diagnosis for this admission?: YesPlan: Imitrex. As needed IV Dilaudid. Rule out meningitis with lumbar puncture. (4) Fever Is this a current diagnosis for this admission?: YesPlan: Repeat urinalysis, blood culture. Chest x-ray with left basilar atelectasis, no definite infiltrate. Head CT with no acute process, no sinus disease. Patient has history of cholecystectomy and appendectomy. Given patient's headache and neck stiffness without other source of infection I think we need to proceed with lumbar puncture. I will start empiric antibiotics for meningitis (Rocephin, ampicillin, vancomycin, acyclovir). (5) Gastroparesis Is this a current diagnosis for this admission?: YesPlan: IV Reglan. Clear liquid diet for now. - Time Time Spent with patient: 35 or more minutes
[2016-09-20] MEDS: ACYCLOVIR SODIUM 750 MG in NORMAL SALINE 250 ML IV SCH ×2 (15:06→23:52)
[2016-09-20] MEDS: AMPICILLIN SODIUM/SULBACTAM NA 1.5 GM in NORMAL SALINE 50 ML IV SCH ×2 (17:26→22:37)
[2016-09-20] MEDS: VANCOMYCIN HCL 1,500 MG in DEXTROSE 5%-WATER 250 ML IV SCH (17:27)
[2016-09-20] MEDS: ACETAMINOPHEN 325 MG TABLET PO PRN (20:09)
[2016-09-20] MEDS: OXYCODONE HCL IR 5 MG TABLET PO PRN (23:54)
[2016-09-20 23:55] LABS: APPEARANCE,URINE SLIGHTLY-CLOUDY; BILIRUBIN,URINE NEGATIVE (NEGATIVE); GLUCOSE, URINE 150 mg/dL (NEGATIVE); KETONES,URINE NEGATIVE (NEGATIVE); LEUKOCYTE ESTERASE,URINE LARGE (NEGATIVE); NITRITE,URINE NEGATIVE (NEGATIVE); PROTEIN,URINE NEGATIVE (NEGATIVE); URINE SPECIFIC GRAVITY 1.004; UROBILINOGEN,URINE NEGATIVE mg/dL (<2.0)
[2016-09-21] MEDS: METOCLOPRAMIDE HCL INJ/PF 10 MG/2 ML SDV IV SCH ×4 (00:55→18:25)
[2016-09-21] MEDS: HYDROMORPHONE HCL INJ/PF 2 MG/ML AMPULE IV PRN ×6 (00:56→22:48)
[2016-09-21] MEDS: AMPICILLIN SODIUM/SULBACTAM NA 1.5 GM in NORMAL SALINE 50 ML IV SCH ×4 (03:46→22:47)
[2016-09-21] MEDS: VANCOMYCIN HCL 1,500 MG in DEXTROSE 5%-WATER 250 ML IV SCH (05:14)
[2016-09-21] MEDS: POTASSI CL 20 MEQ/D5NS 1L 1,000 ML IV PRN ×2 (05:15→22:48)
[2016-09-21] MEDS: ACETAMINOPHEN 325 MG TABLET PO PRN (05:15)
[2016-09-21 06:25] LABS: ABSOLUTE EOSINOPHILS # (AUTO) 0.1 10^3/uL (0.0-0.6); ABSOLUTE LYMPHOCYTES (AUTO) 1.6 10^3/uL (0.5-4.7); ABSOLUTE MONOCYTES (AUTO) 0.6 10^3/uL (0.1-1.4); ABSOLUTE NEUT (AUTO) 5.3 10^3/uL (1.7-8.2); BASOPHILS % (AUTO) 0.3 % (0-2); HEMATOCRIT 36.5 % (36.0-47.0); HGB HCT DIFFERENCE 0.7; LYMPHOCYTES % (AUTO) 21.1 % (13-45); MEAN CORPUSCULAR HEMOGLOBIN 28.9 pg (27.0-33.4); MEAN CORPUSCULAR VOLUME 85 fl (80-97); MONOCYTES % (AUTO) 7.4 % (3-13); RED BLOOD COUNT 4.29 10^6/uL (3.72-5.28); RED CELL DISTRIBUTION WIDTH 12.7 % (11.5-14.0); SEGMENTED NEUTROPHILS % (AUTO) 70.2 % (42-78); WHITE BLOOD COUNT 7.5 10^3/uL (4.0-10.5)
[2016-09-21 06:42] LABS: HEMOGLOBIN 12.4 g/dL (12.0-15.5)
[2016-09-21 06:45] LABS: ANION GAP 9 (5-19); BLOOD UREA NITROGEN 8 mg/dL (7-20); CALCIUM 8.7 mg/dL (8.4-10.2); CARBON DIOXIDE 26 mmol/L (22-30); CHLORIDE 103 mmol/L (98-107); CREATININE RESULT 0.72 mg/dL (0.52-1.25); GLUCOSE 93 mg/dL (75-110); POTASSIUM 4.4 mmol/L (3.6-5.0); SODIUM 137.5 mmol/L (137-145)
[2016-09-21] MEDS: ACYCLOVIR SODIUM 750 MG in NORMAL SALINE 250 ML IV SCH (06:47)
[2016-09-21] MEDS: METOPROLOL TARTRATE 25 MG TABLET PO SCH (10:05)
[2016-09-21] MEDS: DOCUSATE SODIUM 100 MG CAPSULE PO SCH ×2 (10:06→18:25)
[2016-09-21] MEDS: CEFTRIAXONE 2 GM/D5W RTU 2 GM/50 ML RTUPB IV SCH (12:07)
[2016-09-21 12:17] LABS: GLUCOSE,CSF 64 mg/dL (40-70)
--- NOTE | 2016-09-21 12:19 | RADIOLOGY REPORT (SQ) ---
EXAM DESCRIPTION: FLUORO/NEEDLE PLACEMENT/SPINE; LUMBAR PUNCTURE COMPLETED DATE/TIME: 09/21/2016 11:11 am; 09/21/2016 11:16 am REASON FOR STUDY: SHEPARD; FEVER, SHEPARD COMPARISON: None. FLUOROSCOPY TIME: 18 seconds 1 images saved to PACS. TECHNIQUE: Fluoroscopic guided lumbar puncture with opening and closing pressures. LIMITATIONS: None. PROCEDURE: After written consent and assessment were obtained, the patient was brought into the fluo roscopy room and placed prone on the table. The patient's lower back was prepped in a sterile fashio n and an entry site was selected under live fluoroscopic guidance. The entry site was anesthetized wi th 1% lidocaine. A 20 gauge needle was advanced through the skin and into the thecal sac at the level of L3-Lfor. An opening pressure of 22 water units was obtained. After approximately 12.5ml of CSF w as drained, a closing pressure of 22 water units was obtained. The needle was removed and a sterile b andage was placed of the site. Specimens were sent to the lab for testing. A fluoroscopic spot image was saved to PACS confirming level access. FINDINGS: Clear CSF IMPRESSION: Lumbar puncture under fluoroscopy. No immediate complication. COMMENT: Patient medication list reviewed:Yes- Quality ID# [id number]:Eligible professional attests to docu menting in the medical record they obtained, updated, or reviewed the patient's current medications.. Quality ID [id number]: Final reports for procedures using fluoroscopy that document radiation exposure kelli sarah, or exposure time and number of fluorographic images (if radiation exposure indices are not avail able) TECHNICAL DOCUMENTATION: JOB ID: [id number] [employer]- All Rights Reserved
[2016-09-21 12:21] LABS: APPEARANCE ALL TUBES CLEAR; RBC AVERAGE 0.5; RBC DILUENT USED NONE USED; RBC DILUTION FACTOR 1; RBC SIDE 1 0; RBC SIDE 2 1; TOTAL RBC SQUARES COUNTED 225; WHITE BLOOD CELL,CSF 2 /uL (0-5)
[2016-09-21 12:30] LABS: APPEARANCE ALL TUBES CLEAR; APPEARANCE TUBE 1 CLEAR; APPEARANCE TUBE 2 CLEAR; APPEARANCE TUBE 3 CLEAR; RBC AVERAGE 0.5; RBC SIDE 1 0; RBC SIDE 2 1
[2016-09-21 12:31] LABS: RBC DILUENT USED NONE USED; RBC DILUTION FACTOR 1; TOTAL RBC SQUARES COUNTED 225; WHITE BLOOD CELL,CSF 2 /uL (0-5)
[2016-09-21 12:46] LABS: CSF CULTURED REQUIRED CSF CULTURE ORDERED (CSFY); H. INFLUENZAE TYPE B AG NEGATIVE (NEGATIVE); S. PNEUMONIAE AG NEGATIVE (NEGATIVE); STREP. GROUP B AG NEGATIVE (NEGATIVE)
[2016-09-21 13:58] LABS: ADD HIVPANEL? NO; HIV (1 AND 2) ANTIBODY NEGATIVE (NEGATIVE)
--- NOTE | 2016-09-21 14:06 | PDOC PROGRESS REPORT ---
Subjective Progress Note for:: 09/21/16 Subjective:: Patient has continued high fevers, nausea. No vomiting. Headache has basically resolved. She denies abdominal pain. She his having some right lateral flank discomfort radiating to her right lateral leg. She states that she does have a history of diverticular disease. She denies cough, shortness of breath. Physical Exam Vital Signs: Temp Pulse Resp BP Pulse Ox 99.5 F 90 12 111/68 90 L 09/21/16 11:38 09/21/16 11:38 09/21/16 11:38 09/21/16 11:38 09/21/16 11:38 Intake & Output 09/20/16 09/21/16 09/22/16 06:59 06:59 06:59 Intake Total 1660 Output Total 1999 Balance -340 GENERAL: No acute distress HEENT: Conjunctiva clear, nonicteric, moist mucous membranes, no JVD, midline trachea RESPIRATORY: Clear to auscultation bilaterally, no wheezes, no rhonchi CARDIAC: Regular rate and rhythm, no murmurs/gallops/rubs ABDOMEN: Soft, nondistended, nontender, positive bowel sounds, no rebound, no guarding EXTREMETIES: No edema, cyanosis, clubbing NEUROLOGIC: Alert, oriented to person/place/time, CN's grossly intact, no focal deficits SKIN: No rash, wounds PSYCH: Normal mood, normal affect Results Laboratory Results: 09/21/16 06:00 09/21/16 05:51 09/20/16 09/21/16 09/21/16 23:20 05:51 06:00 WBC 7.5 RBC 4.29 Hgb 12.4 D Hct 36.5 MCV 85 MCH 28.9 MCHC 34.0 RDW 12.7 Plt Count 215 Seg Neutrophils % 70.2 Lymphocytes % 21.1 Monocytes % 7.4 Eosinophils % 1.0 Basophils % 0.3 Absolute Neutrophils 5.3 Absolute Lymphocytes 1.6 Absolute Monocytes 0.6 Absolute Eosinophils 0.1 Absolute Basophils 0.0 Sodium 137.5 Potassium 4.4 Chloride 103 Carbon Dioxide 26 Anion Gap 9 BUN 8 Creatinine 0.72 Est GFR ( Amer) > 60 Est GFR (Non-Af Amer) > 60 Glucose 93 Calcium 8.7 Urine Color STRAW Urine Appearance SLIGHTLY-CLOUDY Urine pH 5.0 Ur Specific [place] 1.004 Urine Protein NEGATIVE Urine Glucose (UA) 150 H Urine Ketones NEGATIVE Urine Blood NEGATIVE Urine Nitrite NEGATIVE Ur Leukocyte Esterase LARGE H Urine WBC (Auto) 25 Urine RBC (Auto) 9 Fluid Tube Number CSF Volume CSF Appearance CSF Color CSF WBC CSF RBC CSF Color (1) CSF Appearance (1) CSF Color (2) CSF Appearance (2) CSF Color (3) CSF Appearance (3) CSF Color (4) CSF Appearance (4) CSF Comment CSF Glucose CSF Total Protein 09/21/16 09/21/16 09/21/16 10:50 10:50 10:50 WBC RBC Hgb Hct MCV MCH MCHC RDW Plt Count Seg Neutrophils % Lymphocytes % Monocytes % Eosinophils % Basophils % Absolute Neutrophils Absolute Lymphocytes Absolute Monocytes Absolute Eosinophils Absolute Basophils Sodium Potassium Chloride Carbon Dioxide Anion Gap BUN Creatinine Est GFR ( Amer) Est GFR (Non-Af Amer) Glucose Calcium Urine Color Urine Appearance Urine pH Ur Specific [place] Urine Protein Urine Glucose (UA) Urine Ketones Urine Blood Urine Nitrite Ur Leukocyte Esterase Urine WBC (Auto) Urine RBC (Auto) Fluid Tube Number 4 CSF Volume 12.8 CSF Appearance CLEAR CSF Color COLORLESS CSF WBC 2 CSF RBC 0 CSF Color (1) CSF Appearance (1) CSF Color (2) CSF Appearance (2) CSF Color (3) CSF Appearance (3) CSF Color (4) CSF Appearance (4) CSF Comment CSF CULTURE ORDERED CSF Glucose 64 CSF Total Protein 41 09/21/16 10:50 WBC RBC Hgb Hct MCV MCH MCHC RDW Plt Count Seg Neutrophils % Lymphocytes % Monocytes % Eosinophils % Basophils % Absolute Neutrophils Absolute Lymphocytes Absolute Monocytes Absolute Eosinophils Absolute Basophils Sodium Potassium Chloride Carbon Dioxide Anion Gap BUN Creatinine Est GFR ( Amer) Est GFR (Non-Af Amer) Glucose Calcium Urine Color Urine Appearance Urine pH Ur Specific [place] Urine Protein Urine Glucose (UA) Urine Ketones Urine Blood Urine Nitrite Ur Leukocyte Esterase Urine WBC (Auto) Urine RBC (Auto) Fluid Tube Number 1 CSF Volume 12.8 CSF Appearance CLEAR CSF Color COLORLESS CSF WBC 2 CSF RBC 0 CSF Color (1) COLORLESS CSF Appearance (1) CLEAR CSF Color (2) COLORLESS CSF Appearance (2) CLEAR CSF Color (3) COLORLESS CSF Appearance (3) CLEAR CSF Color (4) COLORLESS CSF Appearance (4) CLEAR CSF Comment CSF Glucose CSF Total Protein Impressions: Head CT 09/20/16 00:00 IMPRESSION: NORMAL BRAIN CT WITHOUT CONTRAST. Chest X-Ray 09/20/16 11:39 IMPRESSION: Minimal left basilar atelectasis Guidance Fluoroscopy 09/21/16 00:00 IMPRESSION: Lumbar puncture under fluoroscopy. No immediate complication. Lumbar Puncture 09/21/16 00:00 IMPRESSION: Lumbar puncture under fluoroscopy. No immediate complication. Assessment & Plan - Diagnosis (1) Fever Is this a current diagnosis for this admission?: YesPlan: Repeat urinalysis with large amount of leukocyte esterase. Repeat blood culture pending. Chest x-ray with left basilar atelectasis, no definite infiltrate. Head CT with no acute process, no sinus disease. Patient has history of cholecystectomy and appendectomy. Lumbar puncture unremarkable. Continue IV Unasyn. Discontinue Rocephin, vancomycin, acyclovir. Check CT scan of chest/abdomen/pelvis. (2) Hypoglycemia due to type 1 diabetes mellitus Is this a current diagnosis for this admission?: YesPlan: Secondary to over administration of Lantus prior to admission. Continue D5 normal saline for now. Continue Accu-Cheks before meals/at bedtime. Continue to hold scheduled Lantus. (3) Syncope Qualifiers: Syncope type: unspecified Qualified Code(s): R55 - Syncope and collapse Is this a current diagnosis for this admission?: Yes (4) Migraine Is this a current diagnosis for this admission?: Yes (5) Gastroparesis Is this a current diagnosis for this admission?: YesPlan: IV Reglan. Clear liquid diet for now. - Time Time Spent with patient: 35 or more minutes
[2016-09-21] MEDS: PROMETHAZINE HCL 25 MG TABLET PO PRN (14:22)
--- NOTE | 2016-09-21 15:13 | RADIOLOGY REPORT (SQ) ---
EXAM DESCRIPTION: CT CHEST WITH COMPLETED DATE/TIME: 09/21/2016 3:01 pm REASON FOR STUDY: fever COMPARISON: 09/29/2012 TECHNIQUE: CT scan of the chest performed using helical scanning technique with dynamic intravenous contrast injection. Images reviewed with lung, soft tissue and bone windows. Reconstructed coronal and sagittal MPR images reviewed. All images stored on PACS. All CT scanners at this facility use dose modulation, iterative reconstruction, and/or weight based d osing when appropriate to reduce radiation dose to as low as reasonably achievable (ALARA). [facility]: Dose Right [facility]: CareDose [facility]: Dose Right [facility]: Teradose 4D [facility]: COPsync CONTRAST TYPE AND DOSE: 89mL Isovue 370- low osmolar. RENAL FUNCTION: BUN 8 creatinine 0.7 RADIATION DOSE: 6.99 mGy. LIMITATIONS: None. FINDINGS: LUNGS AND PLEURA: Subsegmental atelectasis in the lingula and left lower lobe. No effusio ns. HILAR AND MEDIASTINAL STRUCTURES: No identified masses or abnormal nodes. HEART AND VASCULAR STRUCTURES: No aneurysm or dissection. No central pulmonary emboli. No pericardi al effusion. HARDWARE: None in the chest. UPPER ABDOMEN: See separate report of the CT of the abdomen. THYROID AND OTHER SOFT TISSUES: No masses. No adenopathy. BONES: No significant finding. OTHER: No other significant finding. IMPRESSION: Atelectasis. No definite pneumonia. TECHNICAL DOCUMENTATION: JOB ID: [id number] Quality ID # [id number]: Final reports with documentation of one or more dose reduction techniques (e.g., Au tomated exposure control, adjustment of the mA and/or kV according to patient size, use of iterative reconstruction technique) 2010 [employer]- All Rights Reserved
--- NOTE | 2016-09-21 15:23 | RADIOLOGY REPORT (SQ) ---
EXAM DESCRIPTION: CT ABD/PELVIS WITH IV ONLY COMPLETED DATE/TIME: 09/21/2016 3:01 pm REASON FOR STUDY: fever COMPARISON: 03/20/2015 TECHNIQUE: CT scan of the abdomen and pelvis performed using helical scanning technique with dynamic intravenous contrast injection. No oral contrast. Images reviewed with lung, soft tissue, and bone windows. Reconstructed coronal and sagittal MPR images reviewed. Delayed images for evaluation of the urinary system also acquired. All images stored on PACS. All CT scanners at this facility use dose modulation, iterative reconstruction, and/or weight based d osing when appropriate to reduce radiation dose to as low as reasonably achievable (ALARA). [facility]: Dose Right [facility]: CareDose [facility]: Dose Right [facility]: Teradose 4D [facility]: [employer]IQ CONTRAST TYPE AND DOSE: 89mL Isovue 370- low osmolar. RENAL FUNCTION: BUN 8 creatinine 0.7 RADIATION DOSE: 27.86mGy. LIMITATIONS: None. FINDINGS: LOWER CHEST: See separate report of the CT of the chest. LIVER: Small subdiaphragmatic cyst or hemangioma which is unchanged. SPLEEN: Normal size. No focal lesions. PANCREAS: No masses. No significant calcifications. No adjacent inflammation or peripancreatic fluid collections. Pancreatic duct not dilated. GALLBLADDER: Surgically absent. ADRENAL GLANDS: No significant masses or asymmetry. RIGHT KIDNEY AND URETER: No solid masses. No significant calcifications. No hydronephrosis or hyd roureter. LEFT KIDNEY AND URETER: No solid masses. No significant calcifications. No hydronephrosis or hydr oureter. AORTA AND VESSELS: No aneurysm. No dissection. Renal arteries, SMA, celiac without stenosis. RETROPERITONEUM: No retroperitoneal adenopathy, hemorrhage or masses. BOWEL AND PERITONEAL CAVITY: No masses or inflammatory changes. No free fluid or peritoneal masses. APPENDIX: Surgically absent. PELVIS: No mass or free fluid. Normal bladder. ABDOMINAL WALL: Postsurgical changes ventral midline. Small defect in the upper midline abdominal wa ll. No evidence of bowel incarceration. BONES: No acute findings. OTHER: No other significant finding. IMPRESSION: No acute findings in the abdomen or pelvis. TECHNICAL DOCUMENTATION: JOB ID: [id number] Quality ID # [id number]: Final reports with documentation of one or more dose reduction techniques (e.g., Au tomated exposure control, adjustment of the mA and/or kV according to patient size, use of iterative reconstruction technique) 2010 [employer]- All Rights Reserved
[2016-09-22] MEDS: METOCLOPRAMIDE HCL INJ/PF 10 MG/2 ML SDV IV SCH ×3 (00:21→12:01)
[2016-09-22] MEDS: AMPICILLIN SODIUM/SULBACTAM NA 1.5 GM in NORMAL SALINE 50 ML IV SCH ×2 (03:00→08:06)
[2016-09-22] MEDS: HYDROMORPHONE HCL INJ/PF 2 MG/ML AMPULE IV PRN (04:55)
[2016-09-22 06:11] LABS: CREATININE RESULT 0.65 mg/dL (0.52-1.25)
[2016-09-22] MEDS: ACETAMINOPHEN 325 MG TABLET PO PRN (06:23)
[2016-09-22] MEDS: METOPROLOL TARTRATE 25 MG TABLET PO SCH (09:31)
[2016-09-22] MEDS: DOCUSATE SODIUM 100 MG CAPSULE PO SCH ×2 (09:31→20:18)
[2016-09-22] MEDS ORDERED: DOXYCYCLINE HYCLATE 100 MG TABLET PO ONE (13:00)
--- NOTE | 2016-09-22 13:54 | PDOC PROGRESS REPORT ---
Subjective Progress Note for:: 09/22/16 Subjective:: Patient had one low-grade temperature over the past 24 hours. In general she feels much better. Her headaches have nearly resolved. She has no further nausea or vomiting. She denies cough, shortness of breath, abdominal pain, dysuria, diarrhea. Physical Exam Vital Signs: Temp Pulse Resp BP Pulse Ox 98.2 F 76 12 107/68 100 09/22/16 12:00 09/22/16 12:00 09/22/16 12:00 09/22/16 12:00 09/22/16 12:00 Intake & Output 09/21/16 09/22/16 09/23/16 06:59 06:59 06:59 Intake Total 1660 2960 Output Total 2000 1250 Balance -340 1710 GENERAL: No acute distress HEENT: Conjunctiva clear, nonicteric, moist mucous membranes, no JVD, midline trachea RESPIRATORY: Clear to auscultation bilaterally, no wheezes, no rhonchi CARDIAC: Regular rate and rhythm, no murmurs/gallops/rubs ABDOMEN: Soft, nondistended, nontender, positive bowel sounds, no rebound, no guarding EXTREMETIES: No edema, cyanosis, clubbing NEUROLOGIC: Alert, oriented to person/place/time, CN's grossly intact, no focal deficits SKIN: No rash, wounds PSYCH: Normal mood, normal affect Results Laboratory Results: 09/21/16 06:00 09/22/16 05:43 09/22/16 05:43 Creatinine 0.65 Est GFR ( Amer) > 60 Est GFR (Non-Af Amer) > 60 09/21/16 10:50 Viral Culture - Pending Cerebral Spinal Fluid - Csf 09/21/16 10:50 Gram Stain - Preliminary Cerebral Spinal Fluid - Csf CSF Culture - Preliminary NO GROWTH IN 1 DAY 09/20/16 23:20 Urine Culture - Preliminary Catheterized Urine NO GROWTH IN 1 DAY 09/20/16 23:20 Urine Culture - Cancelled Catheterized Urine 09/20/16 14:55 Blood Culture - Preliminary Blood NO GROWTH IN 24 HOURS 09/20/16 12:35 Blood Culture - Preliminary Blood NO GROWTH IN 24 HOURS 09/18/16 21:15 Urine Culture - Final Clean Catch Midstream Mixed Urogenital Gabi Impressions: Head CT 09/20/16 00:00 IMPRESSION: NORMAL BRAIN CT WITHOUT CONTRAST. Chest X-Ray 09/20/16 11:39 IMPRESSION: Minimal left basilar atelectasis Abdomen/Pelvis CT 09/21/16 00:00 IMPRESSION: No acute findings in the abdomen or pelvis. Chest CT 09/21/16 00:00 IMPRESSION: Atelectasis. No definite pneumonia. Guidance Fluoroscopy 09/21/16 00:00 IMPRESSION: Lumbar puncture under fluoroscopy. No immediate complication. Lumbar Puncture 09/21/16 00:00 IMPRESSION: Lumbar puncture under fluoroscopy. No immediate complication. Assessment & Plan - Diagnosis (1) Fever Is this a current diagnosis for this admission?: YesPlan: Repeat urinalysis with large amount of leukocyte esterase. Urine culture no growth. Chest x-ray with left basilar atelectasis, no definite infiltrate. Head CT with no acute process, no sinus disease. Patient has history of cholecystectomy and appendectomy. Lumbar puncture unremarkable. CT scan of chest/abdomen/pelvis-no acute process. Lyme titer pending. HIV screen negative. Discontinue IV antibiotics. Start empiric course of oral doxycycline. It is possible that patient's fever may have been a viral illness. (2) Hypoglycemia due to type 1 diabetes mellitus Is this a current diagnosis for this admission?: YesPlan: Secondary to over administration of Lantus prior to admission. Discontinue D5 normal saline. Continue Accu-Cheks before meals/at bedtime. Sliding scale insulin as needed. Continue to hold scheduled Lantus. (3) Syncope Qualifiers: Syncope type: unspecified Qualified Code(s): R55 - Syncope and collapse Is this a current diagnosis for this admission?: YesPlan: Secondary to hypoglycemia. (4) Migraine Is this a current diagnosis for this admission?: Yes (5) Gastroparesis Is this a current diagnosis for this admission?: YesPlan: Discontinue IV Reglan. Patient does not desire to be on oral Reglan. - Time Time Spent with patient: 25-34 minutes Anticipated discharge: Home Within: within 48 hours
[2016-09-22] MEDS: OXYCODONE HCL IR 5 MG TABLET PO PRN (20:20)
[2016-09-22] MEDS: DOXYCYCLINE HYCLATE 100 MG TABLET PO SCH (21:51)
[2016-09-22] MEDS ORDERED: SUMATRIPTAN SUCCINATE 100 MG TABLET ONE (22:19)
[2016-09-22] MEDS: SUMATRIPTAN SUCCINATE 100 MG TABLET PO PRN (22:52)
[2016-09-22] MEDS ORDERED: TRAZODONE HCL 50 MG TABLET PO ONE (23:00)
[2016-09-23 05:44] LABS: ABSOLUTE EOSINOPHILS # (AUTO) 0.2 10^3/uL (0.0-0.6); ABSOLUTE LYMPHOCYTES (AUTO) 1.9 10^3/uL (0.5-4.7); ABSOLUTE MONOCYTES (AUTO) 0.5 10^3/uL (0.1-1.4); ABSOLUTE NEUT (AUTO) 3.7 10^3/uL (1.7-8.2); BASOPHILS % (AUTO) 0.4 % (0-2); EOSINOPHILS % (AUTO) 2.6 % (0-6); HEMATOCRIT 39.6 % (36.0-47.0); HEMOGLOBIN 13.2 g/dL (12.0-15.5); LYMPHOCYTES % (AUTO) 30.4 % (13-45); MEAN CORPUSCULAR HEMOGLOBIN 28.1 pg (27.0-33.4); MEAN CORPUSCULAR HGB CONC 33.3 g/dL (32.0-36.0); MEAN CORPUSCULAR VOLUME 84 fl (80-97); MONOCYTES % (AUTO) 7.3 % (3-13); RED BLOOD COUNT 4.69 10^6/uL (3.72-5.28); RED CELL DISTRIBUTION WIDTH 12.4 % (11.5-14.0); SEGMENTED NEUTROPHILS % (AUTO) 59.3 % (42-78); WHITE BLOOD COUNT 6.3 10^3/uL (4.0-10.5)
[2016-09-23 05:55] LABS: ANION GAP 11 (5-19); BLOOD UREA NITROGEN 11 mg/dL (7-20); CALCIUM 9.5 mg/dL (8.4-10.2); CARBON DIOXIDE 27 mmol/L (22-30); CHLORIDE 106 mmol/L (98-107); CREATININE RESULT 0.69 mg/dL (0.52-1.25); GLUCOSE 93 mg/dL (75-110); POTASSIUM 3.8 mmol/L (3.6-5.0); SODIUM 143.7 mmol/L (137-145)
[2016-09-23] MEDS: METOPROLOL TARTRATE 25 MG TABLET PO SCH (09:32)
[2016-09-23] MEDS: DOXYCYCLINE HYCLATE 100 MG TABLET PO SCH (09:33)
[2016-09-23] MEDS: DOCUSATE SODIUM 100 MG CAPSULE PO SCH (09:36)
[2016-09-23] MEDS ORDERED: DULOXETINE HCL 30 MG CAPSULE.DR PO SCH (10:00)
--- NOTE | 2016-09-23 12:03 | PDOC DISCHARGE SUMMARY ---
General - Admit/Disc Date/PCP Admission Date/Primary Care Provider: 09/20/16 15:01 ISRAEL THRASHER MD Discharge Date: 09/23/16 - Discharge Diagnosis (1) Fever Is this a current diagnosis for this admission?: YesSummary: Patient had fevers on several occasions during this hospitalization. She had associated headaches, however she suffers from chronic migraine headaches prior to admission. Urinalysis with large amount of leukocyte esterase. Urine culture no growth. Chest x-ray with left basilar atelectasis, no definite infiltrate. Head CT with no acute process, no sinus disease. Patient has history of cholecystectomy and appendectomy. Lumbar puncture unremarkable. CT scan of chest/abdomen/pelvis-no acute process. Lyme titer pending. HIV screen negative. Patient was treated empirically with IV antibiotics until workup was unremarkable. She is now completing empiric course of oral doxycycline. It is possible that patient's fever may have been a viral illness. (2) Hypoglycemia due to type 1 diabetes mellitus Is this a current diagnosis for this admission?: YesSummary: Secondary to over administration of Lantus prior to admission. In further discussion with patient it sounds like she has probably been suffering from overnight hypoglycemia syndrome. She has been seeing a neurologist for episodes of dizziness that have been occurring overnight and morning headaches. She states that her blood glucose has been fairly good prior to going to bed and then very elevated in the morning. Hemoglobin A1c was 6.8. Patient has been off of Lantus for the past 3 days and blood glucose remains in the low 100s. I will resume Lantus 10 units every morning. She will otherwise administer sliding scale insulin before meals and at bedtime. She will need to follow-up with Dr. Geronimo of endocrinology as soon as possible. She is advised to document blood glucose if she should have any further symptoms consistent with overnight hypoglycemia syndrome. (3) Syncope Is this a current diagnosis for this admission?: YesSummary: Patient had syncopal episode in the emergency department associated with hypoglycemia. (4) Migraine Is this a current diagnosis for this admission?: Yes (5) Gastroparesis Is this a current diagnosis for this admission?: Yes - Additional Information Resuscitation Status: Full Code Discharge Diet: Diabetic Discharge Activity: Activity As Tolerated Home Medications: Albuterol Sulfate [Ventolin Hfa] 2 puff IH Q4HP PRN 09/18/16 Duloxetine HCl 30 mg PO DAILY 09/18/16 Metoprolol Tartrate [Lopressor 25 mg Tablet] 25 mg PO DAILY 09/18/16 Trazodone HCl [Desyrel 50 mg Tablet] 50 mg PO QHS 09/18/16 Sumatriptan Succinate [Imitrex 100 mg Tablet] 1 tab PO Q12HP PRN 09/19/16 Doxycycline Hyclate [Vibramycin 100 mg Tablet] 100 mg PO Q12 #10 tablet Insulin Aspart [Novolog Flexpen] 0 unit SUBCUT .SLD SCALE #1 pen 09/23/16 Insulin Glargine,Hum.rec.anlog [Lantus Solostar] 10 units SQ QAM #0 09/23/16 History of Present Illness Patient complains of: Low blood sugar History of Present Illness: PHILLIP DOBBS is a 46 year old female with underlying type 1 diabetes mellitus, who presents to the emergency room for evaluation of above complaint. Patient has been discussed with emergency room physician who evaluated the patient. Over the past 2 weeks, except for the last 24 hours, her blood sugars have never fallen below 350. Over the last several days, she basically has been self -medicating herself with additional Lantus and NovoLog insulin. States she has had approximately 200 units of NovoLog and just over 100 units of Lantus in the last 24 hours. Starting approximately 24 hours ago, she noted her blood sugars were consistently in the low range. She was urged to come to the emergency room but declined to do so. Apparently has not contacted either her primary care physician or laboratory chemist over this time span either. Hospital Course Hospital Course: See above Physical Exam Vital Signs: Temp Pulse Resp BP Pulse Ox 98.6 F 75 18 111/82 99 09/23/16 11:10 09/23/16 11:10 09/23/16 11:10 09/23/16 11:10 09/23/16 11:10 Intake & Output 09/22/16 09/23/16 09/24/16 06:59 06:59 06:59 Intake Total 2960 1142 Output Total 1250 400 Balance 1710 742 GENERAL: No acute distress HEENT: Conjunctiva clear, nonicteric, moist mucous membranes, no JVD, midline trachea RESPIRATORY: Clear to auscultation bilaterally, no wheezes, no rhonchi CARDIAC: Regular rate and rhythm, no murmurs/gallops/rubs ABDOMEN: Soft, nondistended, nontender, positive bowel sounds, no rebound, no guarding EXTREMETIES: No edema, cyanosis, clubbing NEUROLOGIC: Alert, oriented to person/place/time, CN's grossly intact, no focal deficits SKIN: No rash, wounds PSYCH: Normal mood, normal affect Results Laboratory Results: 09/23/16 05:26 09/23/16 05:26 09/23/16 09/23/16 05:26 05:26 WBC 6.3 RBC 4.69 Hgb 13.2 Hct 39.6 MCV 84 MCH 28.1 MCHC 33.3 RDW 12.4 Plt Count 218 Seg Neutrophils % 59.3 Lymphocytes % 30.4 Monocytes % 7.3 Eosinophils % 2.6 Basophils % 0.4 Absolute Neutrophils 3.7 Absolute Lymphocytes 1.9 Absolute Monocytes 0.5 Absolute Eosinophils 0.2 Absolute Basophils 0.0 Sodium 143.7 Potassium 3.8 Chloride 106 Carbon Dioxide 27 Anion Gap 11 BUN 11 Creatinine 0.69 Est GFR ( Amer) > 60 Est GFR (Non-Af Amer) > 60 Glucose 93 Calcium 9.5 09/20/16 23:20 Catheterized Urine Urine Culture - Final NO GROWTH 2 DAYS Labs- Last Values WBC 6.3 10^3/uL (4.0-10.5) 09/23/16 05:26 RBC 4.69 10^6/uL (3.72-5.28) 09/23/16 05:26 Hgb 13.2 g/dL (12.0-15.5) 09/23/16 05:26 Hct 39.6 % (36.0-47.0) 09/23/16 05:26 MCV 84 fl (80-97) 09/23/16 05:26 MCH 28.1 pg (27.0-33.4) 09/23/16 05:26 MCHC 33.3 g/dL (32.0-36.0) 09/23/16 05:26 RDW 12.4 % (11.5-14.0) 09/23/16 05:26 Plt Count 218 10^3/uL (150-450) 09/23/16 05:26 Seg Neutrophils % 59.3 % (42-78) 09/23/16 05:26 Lymphocytes % 30.4 % (13-45) 09/23/16 05:26 Monocytes % 7.3 % (3-13) 09/23/16 05:26 Eosinophils % 2.6 % (0-6) 09/23/16 05:26 Basophils % 0.4 % (0-2) 09/23/16 05:26 Absolute Neutrophils 3.7 10^3/uL (1.7-8.2) 09/23/16 05:26 Absolute Lymphocytes 1.9 10^3/uL (0.5-4.7) 09/23/16 05:26 Absolute Monocytes 0.5 10^3/uL (0.1-1.4) 09/23/16 05:26 Absolute Eosinophils 0.2 10^3/uL (0.0-0.6) 09/23/16 05:26 Absolute Basophils 0.0 10^3/uL (0.0-0.2) 09/23/16 05:26 PT 13.0 SEC (11.4-15.4) 09/20/16 12:35 INR 0.92 09/20/16 12:35 APTT 33.8 SEC (23.5-35.8) 09/20/16 12:35 Sodium 143.7 mmol/L (137-145) 09/23/16 05:26 Potassium 3.8 mmol/L (3.6-5.0) 09/23/16 05:26 Chloride 106 mmol/L (98-107) 09/23/16 05:26 Carbon Dioxide 27 mmol/L (22-30) 09/23/16 05:26 Anion Gap 11 (5-19) 09/23/16 05:26 BUN 11 mg/dL (7-20) 09/23/16 05:26 Creatinine 0.69 mg/dL (0.52-1.25) 09/23/16 05:26 Est GFR ( Amer) > 60 (>60) 09/23/16 05:26 Est GFR (Non-Af Amer) > 60 (>60) 09/23/16 05:26 Glucose 93 mg/dL (75-110) 09/23/16 05:26 POC Glucose 130 mg/dL (70-110) H 09/23/16 11:28 Hemoglobin A1c % 6.8 % (4.7-6.0) H 09/21/16 06:00 Calcium 9.5 mg/dL (8.4-10.2) 09/23/16 05:26 Magnesium 1.8 mg/dL (1.6-2.3) 09/18/16 16:37 Total Bilirubin 0.4 mg/dL (0.2-1.3) 09/18/16 16:37 Direct Bilirubin 0.3 mg/dL (0.0-0.4) 09/18/16 16:37 Indirect Bilirubin Not Reportable 09/18/16 16:37 Neonat Total Bilirubin Not Reportable 09/18/16 16:37 AST 22 U/L (14-36) 09/18/16 16:37 ALT 35 U/L (9-52) 09/18/16 16:37 Alkaline Phosphatase 71 U/L (38-126) 09/18/16 16:37 Troponin I < 0.012 ng/mL 09/18/16 16:37 Total Protein 7.1 g/dL (6.3-8.2) 09/18/16 16:37 Albumin 4.1 g/dL (3.5-5.0) 09/18/16 16:37 TSH 0.86 uIU/mL (0.47-4.68) 09/18/16 16:37 Urine Color STRAW 09/20/16 23:20 Urine Appearance SLIGHTLY-CLOUDY 09/20/16 23:20 Urine pH 5.0 (5.0-9.0) 09/20/16 23:20 Ur Specific [place] 1.004 09/20/16 23:20 Urine Protein NEGATIVE mg/dL (NEGATIVE) 09/20/16 23:20 Urine Glucose (UA) 150 mg/dL (NEGATIVE) H 09/20/16 23:20 Urine Ketones NEGATIVE mg/dL (NEGATIVE) 09/20/16 23:20 Urine Blood NEGATIVE (NEGATIVE) 09/20/16 23:20 Urine Nitrite NEGATIVE (NEGATIVE) 09/20/16 23:20 Urine Bilirubin NEGATIVE (NEGATIVE) 09/20/16 23:20 Urine Urobilinogen NEGATIVE mg/dL (<2.0) 09/20/16 23:20 Ur Leukocyte Esterase LARGE (NEGATIVE) H 09/20/16 23:20 Urine WBC (Auto) 25 /HPF 09/20/16 23:20 Urine RBC (Auto) 9 /HPF 09/20/16 23:20 U Hyaline Cast (Auto) 1 /LPF 09/18/16 16:10 Urine Bacteria (Auto) TRACE /HPF 09/20/16 23:20 Squamous Epi Cells Auto 4 /HPF 09/20/16 23:20 Urine Mucus (Auto) RARE /LPF 09/20/16 23:20 Urine Ascorbic Acid NEGATIVE (NEGATIVE) 09/20/16 23:20 Fluid Tube Number 1 09/21/16 10:50 CSF Volume 12.8 CC 09/21/16 10:50 CSF Appearance CLEAR 09/21/16 10:50 CSF Color COLORLESS 09/21/16 10:50 CSF WBC 2 /uL (0-5) 09/21/16 10:50 CSF RBC 0 /uL (0-800) 09/21/16 10:50 CSF Color (1) COLORLESS 09/21/16 10:50 CSF Appearance (1) CLEAR 09/21/16 10:50 CSF Color (2) COLORLESS 09/21/16 10:50 CSF Appearance (2) CLEAR 09/21/16 10:50 CSF Color (3) COLORLESS 09/21/16 10:50 CSF Appearance (3) CLEAR 09/21/16 10:50 CSF Color (4) COLORLESS 09/21/16 10:50 CSF Appearance (4) CLEAR 09/21/16 10:50 CSF Comment CSF CULTURE ORDERED (CSFY) 09/21/16 10:50 CSF Glucose 64 mg/dL (40-70) 09/21/16 10:50 CSF Total Protein 41 mg/dL (12-60) 09/21/16 10:50 Time Trough Drawn 0543 09/22/16 05:43 Vancomycin Trough < 5.0 ug/mL (5.0-20.0) L 09/22/16 05:43 Specimen Source CSF 09/21/16 10:50 HIV 1&2 Antibody NEGATIVE (NEGATIVE) 09/21/16 05:51 H.influenzae Type B Ag NEGATIVE (NEGATIVE) 09/21/16 10:50 N. meningitidis A/Y Ag NEGATIVE (NEGATIVE) 09/21/16 10:50 N.meningitid C/W135 Ag NEGATIVE (NEGATIVE) 09/21/16 10:50 N.meningi B/E.coli K1 Ag NEGATIVE (NEGATIVE) 09/21/16 10:50 Group B Strep Antigen NEGATIVE (NEGATIVE) 09/21/16 10:50 S. pneumoniae Antigen NEGATIVE (NEGATIVE) 09/21/16 10:50 Impressions: Head CT 09/20/16 00:00 IMPRESSION: NORMAL BRAIN CT WITHOUT CONTRAST. Chest X-Ray 09/20/16 11:39 IMPRESSION: Minimal left basilar atelectasis Abdomen/Pelvis CT 09/21/16 00:00 IMPRESSION: No acute findings in the abdomen or pelvis. Chest CT 09/21/16 00:00 IMPRESSION: Atelectasis. No definite pneumonia. Guidance Fluoroscopy 09/21/16 00:00 IMPRESSION: Lumbar puncture under fluoroscopy. No immediate complication. Lumbar Puncture 09/21/16 00:00 IMPRESSION: Lumbar puncture under fluoroscopy. No immediate complication. Qualifiers PATEINT BEING DISCHARGED WITH ANY OF THE FOLLOWING DIAGNOSIS?: No Plan Time Spent: Less than 30 Minutes
[2016-09-23 12:23] VITALS: BP 107/67
[2016-09-23] MEDS ORDERED: TRAZODONE HCL 50 MG TABLET PO SCH (22:00)
[2016-09-26 07:06] LABS: LYME DISEASE IGG AND IGM AB <0.91 ISR (0.00-0.90)
== END 2016-09-23 14:05 | disposition home or self-care (01) | DRG 639 ==
LOC: ER 13:26 → UNDOADMOB 20:58 → EH 20:58 → 5 09-19 00:40 → 4W 09-20 14:59 → OBSVTOIN 09-20 15:01
PROVIDERS: ADMIT Family Medicine; ATTEND Family Medicine
PROC: 009U3ZX Drainage of Spinal Canal, Percutaneous Approach, Diagnostic (ICD-10-PCS; principal; 2016-09-21)
DX: E10.649 Type 1 diabetes mellitus with hypoglycemia without coma (principal); R50.9 Fever, unspecified; G43.909 Migraine, unspecified, not intractable, without status migrainosus; K31.84 Gastroparesis; I10 Essential (primary) hypertension; M19.90 Unspecified osteoarthritis, unspecified site; F41.9 Anxiety disorder, unspecified; F42.9 Obsessive-compulsive disorder, unspecified; F43.10 Post-traumatic stress disorder, unspecified; Z79.899 Other long term (current) drug therapy; Z79.4 Long term (current) use of insulin; Z86.711 Personal history of pulmonary embolism; Z90.710 Acquired absence of both cervix and uterus; Z90.49 Acquired absence of other specified parts of digestive tract; Z88.8 Allergy status to other drugs, medicaments and biological substances; Z91.040 Latex allergy status; Z91.14 Patient's other noncompliance with medication regimen
CPT/HCPCS: 36415; 62270; 70450; 71010; 71260; 74177; 77003; 80048; 80053; 80202; 81001; 82565; 82945; 82962; 83036; 83735; 84157; 84443; 84484; 85025; 85610; 85730; 86403; 86617; 86618; 86701; 87040; 87070; 87086; 87205; 87252; 89050; 93005; 93010; 96374; 96375; 96376; 99284; G0378; J0133; J0295; J0696; J1170; J1650; J1815; J2270; J2405; J2765; J3370; J3480; J3490; J7030; J7050; J7060

== ENCOUNTER → 2017-03-20 | Outpatient (CLI) | payer MEDICAID | LOC: WI 10:02 | DX: Z53.9 Procedure and treatment not carried out, unspecified reason (principal) ==